=== PATIENT | male | born 1970 | race African-American/Black ===

== ENCOUNTER 2022-11-05 19:27 | Emergency (ER) | payer BC, SELFPAY ==
--- NOTE | 2022-11-05 19:31 | ED.GENADULT ---
HPI - General Adult General Chief complaint: Headache Stated complaint: marie/blurred vision/body aches Time Seen by Provider: 11/05/22 19:38 Source: patient, RN notes reviewed and old records reviewed Mode of arrival: ambulatory Limitations: no limitations History of Present Illness HPI narrative: 52-year-old male presents to the [facility] with complaints of headache, blurry vision that started suddenly at 8:00 a.m. this morning. Patient states the pain is in a did attend 1 of the worst he has ever had. Headache is posterior head. Denies any weakness. No for facial drooping. No one-sided weakness, walks with a normal gait Denies any past medical or surgical history. Denies any chest pain or shortness of breath. denies nausea or vomiting. Onset (ago): hour(s) (12) Related Data Home Medications Medication Instructions Recorded Confirmed No Home Medications 11/05/22 11/05/22 Allergies Allergy/AdvReac Type Severity Reaction Status Date / Time No Known Allergies Allergy Verified 11/05/22 19:42 Review of Systems Review of Systems: All systems reviewed & are unremarkable except as noted in HPI and below Constitutional: Constitutional: Reports no additional constitutional complaints Eyes: Eyes: Reports as per HPI and Reports blurry vision ENT: Reports system reviewed and no additional complaints, except as documented Cardiovascular: Cardiovascular: Reports no additional cardiovascular complaints, Denies chest pain and Denies dyspnea Respiratory: Respiratory: Reports no additional respiratory complaints, Denies chest congestion, Denies cough and Denies dyspnea Gastrointestinal: Gastrointestinal: Reports no additional gastrointestinal complaints, Denies abdominal pain, Denies nausea and Denies vomiting Musculoskeletal: Musculoskeletal: Reports no additional musculoskeletal complaints Integumentary/Breasts: Skin/Breast: Reports system reviewed and no additional complaints, except as docu Neurologic: Reports as per HPI Psychiatric: Psychiatric: Reports no additional psychiatric complaints Allergic/Immunologic: Allergic/Immunologic: Reports no additional allergic/immunologic complaints [facility] Past Medical History Medical History Patient denies medical problems Surgical History Surgical History (Updated 11/05/22 @ 19:48 by Nancy Izaguirre APRN) No pertinent past surgical history Comments At the time of my signature, I reviewed and agree with the nursing past medical, surgical, social, and family history. There is no relevant family history pertinent to the patient complaint. Exam Const: General: cooperative, healthy appearing, comfortable, no acute distress, well developed, alert and well nourished Nutritional Appearance: well nourished Orientation/consciousness: patient oriented x3 Limitations: no limitations HENMT: Head: normal to inspection Ears: hearing grossly normal bilaterally, external ears normal and Abnormal EAC present cerumen impaction Face/Nose/Sinus: Normal external nose present, Normal nares present, Normal nasal mucous membranes and turbinates present, normal facial exam and face symmetric Face and sinus: normal facial exam Mouth: Yes Normal oral and palatal mucosa present, Yes lip normal and Yes moist mucous membranes Throat: posterior oropharynx normal and uvula midline Eyes: General: appearance normal, both eyes and all related structures Visual Coreas: normal visual coreas by confrontation Alignment and Position: alignment normal Periorbital: periorbital findings normal Eyelids: eyelids normal Conjunctivae: conjunctivae normal Pupils: Equal, round and reactive pupils present and Pupils normal by confrontation EOM: EOMs intact bilaterally Neck: Neck: normal visual inspection, full ROM, no lymphadenopathy and no meningeal signs Chest: Chest palpation & inspection: normal inspection of the chest Resp: Effort & Inspection: norm
[2022-11-05 19:38] VITALS: BP 126/72; PULSE 62; RESP 16; TEMP 36.8; O2SAT 99
== END 2022-11-05 19:47 | disposition short-term general hospital (02) ==
PROVIDERS: Emergency Provider Nurse Practitioner
DX: H53.8 Other visual disturbances (principal); R51.9 Headache, unspecified
CPT/HCPCS: 99202; G0463

== ENCOUNTER 2022-11-05 20:06 | Emergency (ER) | payer BC, SELFPAY ==
--- NOTE | ~2022-11-05 | CT_ITS ---
EXAMINATION: CT brain wo con INDICATION: Headache COMPARISON: None TECHNIQUE: Standard unenhanced head CT. The dose-length product (DLP) was 681.00 mGy-cm. The mA was a djusted according to patient size. Iterative reconstruction technique was employed. FINDINGS: There is no intracranial hemorrhage, acute infarction, or abnormal mass lesion. The ventric les are normal. There is no abnormal mass effect or midline shift. The cordova-white matter differentiat ion is normal. The basal cisterns are patent. The orbits are normal. The paranasal sinuses, mastoids and calvarium are normal. IMPRESSION: 1. No acute intracranial abnormality. Reviewed, dictated and finalized at location F.
--- NOTE | ~2022-11-05 | CT_ITS ---
EXAMINATION: CTA brain carotid DATE: 11/05/2022 22:42 INDICATION: Severe headache and blurred vision TECHNIQUE: Computed tomographic angiography (CTA) of the head was performed without and with 100 mL O mnipaque-350 intravenous contrast. CTA of the neck was performed with intravenous contrast. The dose- length product was 1210.76 mGy-cm. Maximum intensity projection and volume rendered 3D-reconstruction s were created by the technologist on a separate workstation. Automated exposure control and iterativ e reconstruction technique were employed. COMPARISON: None. FINDINGS: HEAD CTA: There is no intracranial hemorrhage, acute infarction, or abnormal mass lesion. The ventric les are normal. There is no abnormal mass effect or midline shift. The cordova-white matter differentiat ion is normal. The basal cisterns are patent. The orbits are normal. The paranasal sinuses, mastoids and calvarium are normal. There is no significant stenosis of the basilar artery or posterior cerebral arteries. There is no si gnificant stenosis of the intracranial internal carotid arteries or the anterior or middle cerebral a rteries. The anterior communicating artery and posterior communicating arteries are normal. There is no aneurysm. NECK CTA: The thyroid gland is unremarkable. The submandibular and parotid glands are symmetric. Ther e is no lymphadenopathy. There are no masses identified. The airway is unremarkable. There is mild ce rvical spondylosis. The superior mediastinum is unremarkable. There is 0% stenosis of the proximal right internal carotid artery relative to normal distal artery l umen diameter (NASCET criteria). There is 0% stenosis of the proximal left internal carotid artery re lative to normal distal artery lumen diameter. IMPRESSION: 1. No acute intracranial abnormality. Normal head CTA. 2. 0% stenosis of the proximal right internal carotid artery relative to normal distal artery lumen d iameter (NASCET criteria). 3. 0% stenosis of the proximal left internal carotid artery relative to normal distal artery lumen di ameter. Reviewed, dictated and finalized at location F. IMPRESSION: 1. No acute intracranial abnormality. Normal head CTA. 2. 0% stenosis of the proximal right internal carotid artery relative to normal distal artery lumen diameter (NASCET criteria). 3. 0% stenosis of the proximal left internal carotid artery relative to normal distal artery lumen diameter.
[2022-11-05 20:08] VITALS: BP 133/72; PULSE 55; RESP 16; TEMP 36.6; O2SAT 99
--- NOTE | 2022-11-05 20:20 | ED.HA ---
HPI - Headache General Chief Complaint: Headache Stated Complaint: [place], blurry vision Time Seen by Provider: 11/05/22 20:13 History of Present Illness HPI Narrative: 52-year-old male with no past medical history here for evaluation of sinus congestion, body aches, posterior headache and bilateral blurred vision today. States his symptoms started 12 hours ago when he woke up. He took an Aleve without relief of his symptoms. He went to an urgent care facility and was referred here due to severity of his headache. Denies trauma to the head, fevers or chills, nausea or vomiting, cough, neck stiffness. States the blurred vision just feels like fullness behind his eyes. Related Data Allergies Allergy/AdvReac Type Severity Reaction Status Date / Time No Known Allergies Allergy Verified 11/05/22 19:42 Review of Systems Review of Systems: Gen.: Denies fevers or chills Eyes: Reports blurred vision ENT: Denies congestion Respiratory: Denies shortness of breath or cough CV: Denies chest pain or palpitations GI: Denies abdominal pain nausea, emesis or diarrhea denies burning, urgency, frequency or hematuria Musculoskeletal: Denies back pain or muscle pain Neuro: Reports headache Skin: Denies rash Except as documented, all other systems reviewed and negative PMFSH Past Medical History Medical History Patient denies medical problems Surgical History Surgical History No pertinent past surgical history Exam Narrative: APPEARANCE: Well appearing, no pain in distress, well-nourished. Head: Frontal sinus tenderness. Normocephalic and atraumatic. EYES: PERRLA/EOMI, conjunctivae clear NOSE: No nasal drainage EARS: External ear normal in appearance THROAT: Oropharynx is clear. Mucous membranes are moist. NECK: Supple. No adenopathy, no masses. RESPIRATORY: Airway patent, respirations nonlabored. Clear to auscultation bilaterally, no rales, rhonchi, wheezing. CARDIOVASCULAR: Regular rate and rhythm without murmurs, rubs, or gallops. ABDOMINAL: Normoactive bowel sounds. Soft, nontender, nondistended. No rebound tenderness or guarding. MUSCULOSKELETAL: Extremities are warm and well-perfused. Moves all extremities well. No edema. NEURO: Normal speech. No focal neurologic deficits. SKIN: Skin is warm and dry. No rashes. PSYCHIATRIC: Normal affect/mood.. Course Vital Signs Vital signs: Vital Signs Temperature 97.8 F 11/05/22 20:08 Pulse Rate 55 L 11/05/22 20:08 Respiratory Rate 16 11/05/22 20:08 Blood Pressure 133/72 11/05/22 20:08 Pulse Oximetry 99 11/05/22 20:08 Oxygen Delivery Room Air 11/05/22 20:08 Temperature 97.8 F 11/05/22 20:08 Pulse Rate 49 L 11/06/22 00:10 Respiratory Rate 14 11/06/22 00:10 Blood Pressure 129/72 11/06/22 00:10 Pulse Oximetry 100 11/06/22 00:10 Oxygen Delivery Room Air 11/05/22 20:08 MDM - Headache MDM Narrative Medical decision making narrative: 52-year-old male here due to headache and upper respiratory infectious symptoms for the past day. Patient is nontoxic in appearance and has normal vital signs. He has no cranial nerve deficits and no neck stiffness. This patient presents with a headache most consistent with benign headache from either tension type headache vs migraine. Suspect URI component as well. No headache red flags. Neurologic exam without evidence of meningismus, AMS, focal neurologic findings so doubt meningitis, encephalitis, stroke. Presentation not consistent with acute intracranial bleed to include SAH (lack of risk factors, headache history). No history of trauma so doubt ICH. Given history and physical temporal arteritis unlikely, as is acute angle closure glaucoma. Doubt carotid artery dissection given no focal neuro deficits, no neck trauma or recent neck strain. Patient with no signs of increased intracrani
[2022-11-05] MEDS: SODIUM CHLORIDE 0.9% IV 1,000 ML 999 ML IV CONT (20:57)
[2022-11-05 21:03] LABS: Basophils Percent Auto 0.5 % (0.2-1.2); Eosinophils Absolute Auto 0.3 K/mm3 (0-0.3); Eosinophils Percent Auto 5.1 % (0-4.4); Hematocrit 42.1 % (42.0-52.0); Hemoglobin 13.9 g/dL (14.0-18.0); Immature Granulocyte Absolute 0.01 K/mm3 (0.00-0.031); Immature Granulocyte Percent A 0.2 % (0-0.5); Lymphocytes Percent Auto 27.4 % (18.3-44.2); Mean Corpuscular Volume 78.8 fl (80-100); Mean Platelet Volume 9.8 fl (7.4-10.4); Monocytes Absolute Auto 0.9 K/mm3 (0.1-0.6); Neutrophils Percent Auto 51.8 % (45.5-73.1); Platelet Count Result 167 k/mm3 (150-375); Red Blood Count 5.34 M/mm3 (4.6-6.20); Red Cell Distribution Width 14.5 % (11.5-14.5); White Blood Count 5.9 K/mm3 (4.5-10.0)
[2022-11-05 21:16] LABS: Alanine Aminotransferase 33 U/L (6-50); Albumin Level 4.6 g/dL (3.5-5.1); Alkaline Phosphatase 42 U/L (38-126); Anion Gap 10 mmol/L (8-16); Aspartate Amino Transferase 36 U/L (17-59); Bilirubin,Total 0.6 mg/dL (0.2-1.3); Blood Urea Nitrogen 19 mg/dL (9-20); Calcium 9.2 mg/dL (8.4-10.2); Carbon Dioxide 25 mmol/L (22-30); Chloride 106 mmol/L (98-107); Estimated CRCL calculation 94 ml/min; Estimated Glomerular Filt Rate > 60; Glucose 98 mg/dL (65-110); Sodium 141 mmol/L (137-145)
[2022-11-05 21:43] VITALS: BP 127/67; PULSE 50; RESP 16; O2SAT 98
[2022-11-05 22:03] LABS: Influenza A QL RT-PCR Negative (Negative); Influenza B QL RT-PCR Negative (Negative); SARS-CoV-2 RNA PCR Negative
[2022-11-06] MEDS: diphenhydrAMINE HCl INJ 50 MG/ML VIAL 25 MG IV PUSH (00:08)
[2022-11-06] MEDS: PROCHLORPERAZINE EDISYLATE 10 MG/2 ML VIAL IV PUSH (00:09)
[2022-11-06 00:10] VITALS: BP 129/72; PULSE 49; RESP 14; O2SAT 100
== END 2022-11-06 00:25 | disposition home or self-care (01) ==
PROVIDERS: Emergency Provider Physician Assistant
DX: J06.9 Acute upper respiratory infection, unspecified (principal); Z20.822 Contact with and (suspected) exposure to COVID-19
CPT/HCPCS: 36415; 70450; 70496; 70498; 80053; 85025; 87636; 96361; 96374; 96375; 99284; J0131; J0780; J1200; J7030; Q9967

== ENCOUNTER 2023-03-05 08:12 | Emergency (ER) | payer BC, SELFPAY ==
[2023-03-05 08:23] VITALS: BP 114/69; PULSE 64; RESP 16; TEMP 36.9; O2SAT 99
--- NOTE | 2023-03-05 08:31 | ED.GENADULT ---
HPI - General Adult General Chief complaint: Eye Problems Stated complaint: eyes itching, bodyaches Source: patient Mode of arrival: ambulatory Limitations: no limitations History of Present Illness HPI narrative: patient presents for evaluation of sinus symptoms for last 3 days. Symptoms include sinus congestion, thick mucopurulent discharge from nares, subjective fever and watering of the eyes. denies sore throat, chills, otalgia, cough, shortness of breath. No recent sick contacts to his knowledge. He does not smoke. He tried NyQuil for symptoms with minimal improvement thereafter. Related Data Allergies Allergy/AdvReac Type Severity Reaction Status Date / Time No Known Allergies Allergy Verified 03/05/23 08:20 Review of Systems Review of Systems: CONSTITUTIONAL: Reports subjective fever. Denies, chills, or sweats. EYES: Reports watering of the eyes. Denies visual changes or redness ENT:Report sinus congestion and mucopurulent discharge from the nares. Denies sore throat or otalgia. CARDIOVASCULAR: Denies chest pain, palpitations, or edema. RESPIRATORY: Denies cough or dyspnea. GASTROINTESTINAL: Denies abdominal pain, nausea, vomiting, or diarrhea. GENITOURINARY: Denies dysuria or hematuria. SKIN: Denies rash or itching. MUSCULOSKELETAL: Denies back pain, joint pain, or myalgia. NEUROLOGIC: Denies headache, numbness, dizziness, or weakness. PSYCHIATRIC: Denies anxiety or depression. PMFSH Past Medical History Medical History Patient denies medical problems Surgical History Surgical History No pertinent past surgical history Family History Family History Mother Family history non-contributory Social History Social History Smoking status: Never smoker Substance use: never Gender identity (if verbalized by the patient): Male Spiritual care concerns: No Exam Narrative: GENERAL: Well-appearing, well-nourished, and in no acute distress. HEAD: Normocephalic, atraumatic. EYES: PERRLA and EOMI. ENT: There is frontal and bilateral maxillary sinus tenderness. There is thick mucopurulent discharge in nares. No epistaxis. Mucous membranes moist. Oropharynx without tonsillar hypertrophy exudate or other lesions. Bilateral TMs pearly cordova nonbulging NECK: Supple. No adenopathy or masses. No carotid bruits or JVD CHEST: Clear to auscultation. No respiratory distress. No wheezes rales or rhonchi HEART: Regular rate and rhythm. No murmur heard. Normal peripheral pulses. ABDOMEN: Soft, nontender, nondistended, normal active bowel sounds. EXTREMITIES: Normal range of motion. No edema. SKIN: Warm, dry, no rash. NEURO: No focal deficits. Alert and oriented x3. PSYCH: Normal mood and affect. Course Course Emergency Course: This is a 52-year-old male who presented for evaluation of sinus symptoms. he meets criteria for ABRS based upon quality of discharge and presence of fever. Will tx with augmentin. Follow up with PCP and go to ER for worsening symptoms. Pt in agreement with plan of care. Level of Care: Express Care Visit Vital Signs Vital signs: Vital Signs Temperature 36.9 C 03/05/23 08:23 Pulse Rate 64 03/05/23 08:23 Respiratory Rate 16 03/05/23 08:23 Blood Pressure 114/69 03/05/23 08:23 Pulse Oximetry 99 03/05/23 08:23 Oxygen Delivery Room Air 03/05/23 08:23 Temperature 36.9 C 03/05/23 08:23 Pulse Rate 64 03/05/23 08:23 Respiratory Rate 16 03/05/23 08:23 Blood Pressure 114/69 03/05/23 08:23 Pulse Oximetry 99 03/05/23 08:23 Oxygen Delivery Room Air 03/05/23 08:23 Medical Decision Making Vital Signs Vital Signs: Vital Signs Temperature 36.9 C 03/05/23 08:23 Pulse Rate 64 03/05/23
== END 2023-03-05 08:33 | disposition home or self-care (01) ==
PROVIDERS: Emergency Provider Nurse Practitioner; PCP Internal Medicine
DX: J01.90 Acute sinusitis, unspecified (principal)
CPT/HCPCS: 99213; G0463